=== PATIENT | male | born 1970 ===

== ENCOUNTER → 2018-07-22 22:00 | Outpatient (REF) | payer OTHER, SELFPAY ==
[2018-07-22 22:37] LABS: Alanine Aminotransferase 42 IU/L (21-72); Albumin 4.5 g/dL (3.5-5.0); Albumin Globulin Ratio 1.5 (1.0-2.8); Alkaline Phosphatase 64 U/L (38-126); Aspartate Aminotransferase 35 IU/L (17-59); BUN Creatinine Ratio 13.6 (6-22); Bilirubin Total 0.5 mg/dL (0.2-1.3); Blood Urea Nitrogen 15 mg/dL (9-20); Calcium 9.6 mg/dL (8.4-10.2); Carbon Dioxide 27 mmol/L (22-32); Chloride 101 mmol/L (98-107); Estimated Glomerular Filt Rate > 60.0 mL/min (>60); Glucose 87 mg/dL (70-100); HEMOLYSIS < 15 (0-50); Potassium 4.6 mmol/L (3.4-5.1); Sodium 139 mmol/L (137-145); Total Protein 7.5 g/dL (6.3-8.2)
[2018-07-22 22:43] LABS: Add Manual Diff / Slide Review YES; Hematocrit 44.8 % (41-53); Hemoglobin 15.1 g/dL (13.5-17.5); Mean Corpuscular HGB Conc 33.8 % (30-36); Mean Corpuscular Hemoglobin 29.7 PG (26-34); Mean Corpuscular Volume 88.1 fL (80-100); Platelet Count 348 X10^3/uL (150-400); Red Blood Cell Count 5.09 X10^6/uL (4.5-5.9); Red Cell Distribution Width 12.8 % (11.6-14.8); White Blood Cell Count 5.8 X10^3/uL (4.5-11.0)
[2018-07-23 04:36] LABS: Morphology Comment Normal Morphology
[2018-07-23 06:30] LABS: RBC Morphology Normal Morphology
[2018-07-24 14:25] LABS: PSA Total 1.32 ng/mL (< 4.01)
[2018-07-25 15:14] LABS: Estradiol 37 pg/mL (< 40)
[2018-07-26 13:10] LABS: Testosterone, Total 458.6
[2018-07-26 13:11] LABS: Sex Hormone Binding Globulin 44.4; Testosterone,Free 10.6
== END ==
LOC: LAB 22:00
PROVIDERS: Visit Provider Naturopath
DX: Z13.89 Encounter for screening for other disorder (principal); E29.1 Testicular hypofunction; R53.83 Other fatigue
CPT/HCPCS: 36415; 80053; 82670; 84153; 84154; 84270; 84402; 84403; 85025